=== PATIENT | female | born 1995 | race Caucasian/White ===

== ENCOUNTER 2017-07-09 20:56 | Inpatient (IN) | payer OTHER ==
[2017-07-09] MEDS: LORazepam 2 MG/ML VIAL (J2060) IM (22:35)
[2017-07-09] MEDS ORDERED: traZODone 50 MG TAB PO (23:15)
[2017-07-09] MEDS ORDERED: MOM 30ML SUSPENSION UDC PO (23:15)
[2017-07-09] MEDS ORDERED: ACETAMINOPHEN TAB 650MG DOSE (2X325MG) PO (23:15)
[2017-07-09] MEDS ORDERED: HALOPERIDOL 5 MG TAB PO (23:15)
[2017-07-09] MEDS ORDERED: LORazepam 1 MG TAB PO (23:15)
[2017-07-09] MEDS ORDERED: MAALOX 30 ML SUSP *UDC PO (23:15)
[2017-07-10] MEDS ORDERED: HALOPERIDOL 5 MG/ML VIAL (J1630) As Ordered (00:22)
[2017-07-10] MEDS ORDERED: diphenhydrAMINE INJ 50MG/ML VIAL (J1200) As Ordered (00:23)
[2017-07-10] MEDS: LORazepam 2 MG/ML VIAL (J2060) IM (00:30)
[2017-07-10] MEDS: diphenhydrAMINE INJ 50MG/ML VIAL (J1200) IM (00:30)
[2017-07-10] MEDS: HALOPERIDOL 5 MG/ML VIAL (J1630) IM (00:30)
[2017-07-10] MEDS: PALIPERIDONE 3 MG ER TAB (INVEGA) PO ×2 (12:00→20:36)
[2017-07-11] MEDS: PALIPERIDONE 3 MG ER TAB (INVEGA) PO ×2 (08:33→20:15)
[2017-07-11] MEDS: NICOTINE 21MG/24HR 1 EA TRANSDERMAL TD (11:47)
[2017-07-12] MEDS: NICOTINE 21MG/24HR 1 EA TRANSDERMAL TD (08:57)
== END 2017-07-12 12:00 | disposition home or self-care (01) | DRG 776 ==
LOC: M PSY 07-10 04:41 → M ED 20:56 → M ED INP 23:11
DX: F15.159 Other stimulant abuse with stimulant-induced psychotic disorder, unspecified (principal); F60.3 Borderline personality disorder; F25.9 Schizoaffective disorder, unspecified; F17.210 Nicotine dependence, cigarettes, uncomplicated; F12.10 Cannabis abuse, uncomplicated; F19.10 Other psychoactive substance abuse, uncomplicated